=== PATIENT | male | born 1980 | race Caucasian/White ===

== ENCOUNTER 2022-02-12 18:30 | Emergency (ER) | payer OTHER ==
[2015-05-15 18:09] VITALS: BP 130/85
== END 2022-02-12 20:42 | disposition left against medical advice (07) ==
LOC: ER 18:30
DX: S99.922A Unspecified injury of left foot, initial encounter (principal); Z53.21 Procedure and treatment not carried out due to patient leaving prior to being seen by health care provider; W11.XXXA Fall on and from ladder, initial encounter; Y93.89 Activity, other specified; Y92.89 Other specified places as the place of occurrence of the external cause; Y99.8 Other external cause status